=== PATIENT | female | born 1985 | race Caucasian/White ===

== ENCOUNTER 2018-08-18 05:43 | Emergency (ER) | payer OTHER ==
[~2018-08-18] VITALS: Ht 165.1 cm; Wt 138.3 kg
[~2018-08-18 05:43] MED LIST: BACTRIM DS TAB1 EACH PO; BENADRYL25 MG PO; CIPRO500 MG PO; DOXYCYCLINE 10100 MG PO; FLEXERIL PO; HYDROCODONE-AP1 EAC6 PO; IBUPROFEN 800800 M1 PO; KEFLEX500 M1 PO; MEDROLDOSEPACK PO; NAPROSYN500 MG PO; NOHOMEMEDICATIONS; NORCO 5-325 TA1 EACH PO; ONDANSETRON HCL4 M2 PO; PYRIDIUM100 M1 PO; TRAMADOL 50 MG50 MG PO
[2018-08-18] MEDS ORDERED: SINGULAIR 10 MG10 M1 PO (06:24)
[2018-08-18] MEDS ORDERED: PROAIR HFA8.5 GM INH (06:24)
[2018-08-18] MEDS ORDERED: PROMETHAZINE-C473 ML PO (06:24)
[2018-08-18] MEDS ORDERED: PREDNISONE50 MG PO (06:24)
[2018-08-18 06:34] VITALS: BP 128/60
== END 2018-08-18 06:38 | disposition home or self-care (01) ==
LOC: M.ERS 05:43
DX: J98.01 Acute bronchospasm (principal); E66.9 Obesity, unspecified; N80.9 Endometriosis, unspecified; Z68.43 Body mass index [BMI] 50.0-59.9, adult; Z98.890 Other specified postprocedural states; Z91.040 Latex allergy status

== ENCOUNTER 2019-03-16 13:02 | Emergency (ER) | payer OTHER ==
[~2019-03-16] VITALS: Ht 165.1 cm; Wt 138.3 kg
[~2019-03-16 13:02] MED LIST changes: +PREDNISONE50 MG PO; +PROAIR HFA8.5 GM INH; +PROMETHAZINE-C473 ML PO; +SINGULAIR 10 MG10 M1 PO
[2019-03-16 13:21] LABS: INFLUENZA A ANTIGEN Negative (Negative)
[2019-03-16] MEDS ORDERED: TESSALON PERLE100 MG PO ×2 (13:31)
[2019-03-16] MEDS ORDERED: TAMIFLU75 MG PO ×2 (13:31)
[2019-03-16 13:40] VITALS: BP 132/80
== END 2019-03-16 13:41 | disposition home or self-care (01) ==
LOC: M.ERS 13:02
PROVIDERS: Nurse Practitioner Family
DX: J10.1 Influenza due to other identified influenza virus with other respiratory manifestations (principal); J45.909 Unspecified asthma, uncomplicated; Z98.890 Other specified postprocedural states; Z91.040 Latex allergy status